=== PATIENT | female | born 1995 | race African-American/Black ===

== ENCOUNTER 2017-04-12 15:41 | Emergency (ER) | payer SELFPAY ==
[~2017-04-12] VITALS: Ht 172.7 cm; Wt 77.0 kg
[2017-04-12 15:43] VITALS: BP 123/76
[2017-04-12] MEDS ORDERED: DEXAMETHASONE 4 MG TABLET PO ONE (16:30)
[2017-04-12] MEDS ORDERED: DEXAMETHASONE 4 MG TABLET ONE (16:43)
== END 2017-04-12 17:10 | disposition home or self-care (01) ==
LOC: ED 17:04
DX: J02.9 Acute pharyngitis, unspecified (principal)
CPT/HCPCS: 99283